=== PATIENT | male | born 1955 | race Caucasian/White ===

== ENCOUNTER → 2016-12-07 | Outpatient (CLI) | payer OTHER ==
--- NOTE | 2016-12-07 10:29 | REP ---
Chest x-ray: Two views. History: Chronic ischemic heart disease. Comparison chest x-ray: March 13, 2010. Findings: The lungs are symmetrically well inflated and clear. Pleural angles are sharp. The heart is not enlarged. There is an elongate left coronary artery stent noted in place. Pulmonary vasculature is not increased. No significant bony abnormality is seen. Impression: Coronary artery stent material noted overlying the heart. Otherwise no acute disease. Signed by Live Villar MD 12/07/2016 01:07 P
[2016-12-07 10:56] LABS: BASO % 0.9 % (0.0-1.0); EOS # 0.2 K/mm3 (0.0-0.50); EOS % 4.1 % (0.0-3.0); LYMPH # 1.2 K/mm3 (1.5-4.5); LYMPH % 23.1 % (24.0-44.0); MEAN CORPUSCULAR HEMOGLOBIN 33.2 pg (27.0-33.0); MEAN CORPUSCULAR HGB CONC 33.8 g/dl (32.0-36.5); MEAN CORPUSCULAR VOLUME 98.2 fl (80.0-96.0); MONO # 0.4 K/mm3 (0.0-0.8); MONO % 7.1 % (0.0-5.0); NEUTROPHILS # 3.2 K/mm3 (1.8-7.7); RED CELL DISTRIBUTION WIDTH 13.1 % (11.5-14.5); WHITE BLOOD COUNT 5.2 K/mm3 (4.0-10.0)
[2016-12-07 11:12] LABS: ALBUMIN 3.9 GM/DL (3.2-5.2); ALBUMIN/GLOBULIN RATIO 1.26 (1.00-1.93); ALKALINE PHOSPHATASE 60 U/L (45-117); ALT/SGPT 38 U/L (12-78); ANION GAP 5 MEQ/L (8-16); AST/SGOT 29 U/L (15-37); BILIRUBIN,TOTAL 0.3 MG/DL (0.2-1.0); BLOOD UREA NITROGEN 16 MG/DL (7-18); CALCIUM LEVEL 9.3 MG/DL (8.8-10.2); CARBON DIOXIDE LEVEL 30 MEQ/L (21-32); CHLORIDE LEVEL 108 MEQ/L (98-107); CHOLESTEROL LEVEL 178 MG/DL (<200); CREATININE FOR GFR 0.77 MG/DL (0.70-1.30); GLOMERULAR FILTRATION RATE > 60.0 (>49); GLUCOSE, FASTING 89 MG/DL (80-110); POTASSIUM SERUM 4.5 MEQ/L (3.5-5.1); SODIUM LEVEL 143 MEQ/L (136-145); TRIGLYCERIDES LEVEL 189 MG/DL (<150)
== END ==
LOC: M LAB 09:34
PROVIDERS: ATTEND Physician Assistant Medical
DX: I25.9 Chronic ischemic heart disease, unspecified (principal)

== ENCOUNTER → 2017-04-08 | Outpatient (CLI) | payer OTHER ==
[~2017-04-08] MED LIST: GASTROGRAFIN SOLUTION 30ML (Q9963) As Ordered ONE; ISOVUE-370 76% 100ML VIAL (Q9967) As Ordered ONE
--- NOTE | 2017-04-08 15:56 | REP ---
CT ABDOMEN AND PELVIS WITH IV CONTRAST: TECHNIQUE: Axial contrast enhanced images from the lung bases to the pubic symphysis using 100 mL Isovue 370 intravenous contrast material with multiplanar reformations. Visualized lung bases are clear. Liver, spleen, adrenals, pancreas, and kidneys are normal in appearance. There is no hydronephrosis. There are moderate atherosclerotic calcifications of the abdominal aorta without aneurysm. Bilateral external iliac bypass grafts are noted. There is no adenopathy. There is no free air or free fluid. No bowel wall thickening is seen. There is no evidence of appendicitis. No pelvic mass is seen. The urinary bladder is not well distended and not well evaluated. There is no anterior abdominal wall defect. There are degenerative changes at L5-S1 disc level. IMPRESSION: No mass or adenopathy seen in the abdomen or pelvis. No free air or free fluid. No acute findings. Signed by Bhupinder Whalen MD 04/08/2017 05:02 P
--- NOTE | 2017-04-08 16:22 | REP ---
MRI lumbar spine without contrast: History: Low back pain. Failed conservative measures. Technique: Sagittal and axial T1 and T2-weighted scans are acquired in the usual fashion with and without fat saturation. Sequences include spin echo, turbo spin-echo, and STIR imaging sequences. MRI findings: Lumbar vertebral body heights are preserved. Alignment is normal. Cortical and medullary bone signal intensity are preserved. There are mild reactive marrow changes on either side of the degenerated L5-S1 disc. Axial and sagittal images at L5-S1 demonstrate central disc bulging indenting the ventral margin of the thecal sac. There is mild osteoarthritic facet hypertrophy bilaterally at L5-S1. There is mild bilateral neural foraminal narrowing from facet hypertrophy and discogenic spurring. No central canal stenosis is noted. At L4-5, axial and sagittal images demonstrate a large left posterior disc protrusion. Disc protrusion measures 17 x 18 x 10 mm. There is significant compression of the thecal sac. Canal size is developmentally small and this is exaggerated by ligamentum flavum and facet hypertrophy which is present bilaterally. CSF signal is completely effaced on T2-weighted scans from the thecal sac at the 4-5 level. There is mild neural foraminal narrowing on the right. At L3-4, there is central disc bulging indenting the ventral margin of the thecal sac. Canal size is borderline. There is mild ligamentum flavum and facet hypertrophy. AP dimension of the thecal sac in the midline at this level is 11 mm. No neural foraminal narrowing is seen. At L2-3, there is mild diffuse disc bulging. Mild facet hypertrophy is noted. No neural foraminal narrowing is seen. At L1-2, there is mild diffuse disc bulging. Impression: Degenerative spondylosis changes most pronounced at L4-5 and L5-S1. The dominant abnormality is significant thecal sac compression from a large left-sided disc herniation at L4-5 superimposed on developmental and acquired central canal stenosis. Neural foraminal narrowing is noted at L4-5 and L5-S1 as described above. Signed by Live Villar MD 04/08/2017 04:43 P
== END ==
LOC: M RAD 12:14
PROVIDERS: ATTEND Physician Assistant Medical
DX: M54.5 Low back pain (principal); R10.9 Unspecified abdominal pain
CPT/HCPCS: 72148; 74177; Q9963; Q9967

== ENCOUNTER → 2020-08-20 | Outpatient (CLI) | payer OTHER ==
--- NOTE | 2020-08-20 12:31 | REP ---
INDICATION: ANOREXIA COMPARISON: 12/07/2016. TECHNIQUE: PA/Lateral FINDINGS: Lungs: Clear, no infiltrate. Heart: Normal in size. Mediastinum: Mediastinal silhouette unremarkable. Pleural angles: Unremarkable.. Bones and soft tissues: Unremarkable. IMPRESSION: No acute pulmonary disease. <Electronically signed by Bhupinder Whalen > 08/20/20 [id number]
[2020-08-20 17:27] LABS: BASO # 0.1 10^3/uL (0.0-0.2); BASO % 0.8 % (0.0-1.0); EOS # 0.2 10^3/uL (0.0-0.5); EOS % 2.2 % (0.0-3.0); HEMATOCRIT 43.1 % (42.0-52.0); LYMPH # 1.6 10^3/uL (1.5-5.0); LYMPH % 21.9 % (24.0-44.0); MEAN CORPUSCULAR HGB CONC 32.5 g/dl (32.0-36.5); MEAN CORPUSCULAR VOLUME 86.2 fl (80.0-96.0); MONO # 0.5 10^3/uL (0.0-0.8); MONO % 6.7 % (2.0-8.0); NEUTROPHILS % 68.3 % (36.0-66.0); PLATELET COUNT, AUTOMATED 378 10^3/uL (150-450); WHITE BLOOD COUNT 7.4 10^3/uL (4.0-10.0)
[2020-08-20 17:52] LABS: ALBUMIN 3.7 GM/DL (3.2-5.2); ALT/SGPT 23 U/L (12-78); BILIRUBIN,TOTAL 0.2 MG/DL (0.2-1.0); BLOOD UREA NITROGEN 18 MG/DL (7-18); CALCIUM LEVEL 9.7 MG/DL (8.8-10.2); CARBON DIOXIDE LEVEL 30 MEQ/L (21-32); CHLORIDE LEVEL 104 MEQ/L (98-107); CHOLESTEROL LEVEL 161 MG/DL (<200); CHOLESTEROL RISK RATIO 3.354 (<5); CREATININE FOR GFR 0.66 MG/DL (0.70-1.30); GLOMERULAR FILTRATION RATE > 60.0 (>49); GLUCOSE, FASTING 90 MG/DL (70-100); HDL CHOLESTEROL 48 MG/DL (>40); LDL CHOLESTEROL 91 MG/DL (<100); LIPASE 78 U/L (73-393); NON-HDL-C 113 MG/DL; POTASSIUM SERUM 4.8 MEQ/L (3.5-5.1); SODIUM LEVEL 138 MEQ/L (136-145); THYROID STIMULATING HORMONE 0.913 uIU/ML (0.358-3.740); TRIGLYCERIDES LEVEL 110 MG/DL (<150)
== END ==
LOC: M RAD 11:33
PROVIDERS: ATTEND Pediatrics
DX: I25.119 Atherosclerotic heart disease of native coronary artery with unspecified angina pectoris (principal); R63.0 Anorexia

== ENCOUNTER → 2020-10-14 | Outpatient (REF) | payer OTHER ==
[~2020-10-14] MED LIST changes: +ASPI-255 PO; +ATOR80TA59 PO; +CLOP75TA2 PO; -GASTROGRAFIN SOLUTION 30ML (Q9963) As Ordered ONE; -ISOVUE-370 76% 100ML VIAL (Q9967) As Ordered ONE; +LISI2.5T2 PO
[2020-10-14 13:34] LABS: BASO # 0.1 10^3/uL (0.0-0.2); BASO % 1.1 % (0.0-1.0); EOS # 0.2 10^3/uL (0.0-0.5); EOS % 1.9 % (0.0-3.0); HEMATOCRIT 44.3 % (42.0-52.0); HEMOGLOBIN 14.5 g/dl (13.5-17.5); LYMPH # 1.6 10^3/uL (1.5-5.0); LYMPH % 19.9 % (24.0-44.0); MEAN CORPUSCULAR HEMOGLOBIN 28.8 pg (27.0-33.0); MEAN CORPUSCULAR HGB CONC 32.7 g/dl (32.0-36.5); MEAN CORPUSCULAR VOLUME 88.1 fl (80.0-96.0); MONO # 0.6 10^3/uL (0.0-0.8); MONO % 7.8 % (2.0-8.0); NEUTROPHILS # 5.6 10^3/uL (1.5-8.5); NEUTROPHILS % 69.1 % (36.0-66.0); PLATELET COUNT, AUTOMATED 337 10^3/uL (150-450); RED BLOOD COUNT 5.03 10^6/uL (4.30-6.10); WHITE BLOOD COUNT 8.1 10^3/uL (4.0-10.0)
[2020-10-14 14:04] LABS: ALBUMIN 3.7 GM/DL (3.2-5.2); ALT/SGPT 22 U/L (12-78); BILIRUBIN,TOTAL 0.2 MG/DL (0.2-1.0); BLOOD UREA NITROGEN 18 MG/DL (7-18); C REACTIVE PROTEIN QUANTITATIV 0.58 MG/DL (0.00-0.30); CALCIUM LEVEL 9.7 MG/DL (8.8-10.2); CARBON DIOXIDE LEVEL 28 MEQ/L (21-32); CHLORIDE LEVEL 106 MEQ/L (98-107); CREATININE FOR GFR 0.76 MG/DL (0.70-1.30); GLOMERULAR FILTRATION RATE > 60.0 (>49); GLUCOSE, FASTING 91 MG/DL (70-100); POTASSIUM SERUM 4.8 MEQ/L (3.5-5.1); SODIUM LEVEL 138 MEQ/L (136-145); TOTAL PROTEIN 7.5 GM/DL (6.4-8.2)
[2020-10-14 14:08] LABS: ERYTHROCYTE SEDIMENTATION RATE 24 mm/hr (0-20)
== END ==
LOC: M SFHCPLAZ 10:11
PROVIDERS: ATTEND Internal Medicine Infectious Disease
DX: A69.23 Arthritis due to Lyme disease (principal)
CPT/HCPCS: 36415; 80053; 85025; 85652; 86140; G0463

== ENCOUNTER 2020-10-20 12:01 | Outpatient (CLI) | payer OTHER ==
[~2020-10-20] VITALS: Ht 182.9 cm; Wt 58.0 kg
[~2020-10-20 12:01] MED LIST changes: -LIDOCAINE 1% MDV 20ML VIAL As Ordered ONE
[2020-10-20] MEDS ORDERED: SODIUM CHLORIDE 0.9% INJ 10 ML SYR IV PRN (14:55)
[2020-10-20 15:00] VITALS: BP 137/75
[2020-10-20] MEDS ORDERED: cefTRIAXone SOD 2 GM in D5W MINI-BAG PLUS 50 ML IV ONE (15:30)
[2020-10-20] MEDS ORDERED: SODIUM CHLORIDE 0.9% INJ 10 ML SYR IV SCH (18:00)
== END 2020-10-20 15:15 | disposition home or self-care (01) ==
LOC: M INFU 12:01
PROVIDERS: ATTEND Internal Medicine Infectious Disease
DX: A69.23 Arthritis due to Lyme disease (principal)
CPT/HCPCS: 76937; 96365; C1751; J0696; J1642; J1644

== ENCOUNTER → 2020-10-20 | Outpatient (CLI) | payer OTHER ==
[~2020-10-20] MED LIST changes: +LIDOCAINE 1% MDV 20ML VIAL As Ordered ONE
[2020-10-20 12:34] VITALS: BP 138/63
--- NOTE | 2020-10-20 16:25 | REP ---
PROCEDURE NAME: PICC LINE INSERTION W/SITERITE CLINICAL INFORMATION: ANTIBIOTIC TREATMENT. COMPARISON: None. PROCEDURE DESCRIPTION: The procedure was performed by CASSIUS Law, under the direct supervision of Dr. Villar. The risks and benefits of the procedure were explained to the patient and an informed consent was obtained both verbally and written. Directly prior to the start of the procedure a formal time-out was completed in the procedure room. The left lateral brachial vein was localized using ultrasound guidance. The skin was prepped and draped in sterile fashion. One mL of 1% lidocaine 10 mg/mL was used as a local anesthetic. Using ultrasound guidance the left lateral brachial vein was cannulated, and a 0.018 guidewire was inserted and advanced to the level of SVC using fluoroscopic guidance. The needle was removed and a 4.5 Wallisian dilator and peel-away sheath was inserted over the guidewire. A 4.5 Wallisian single lumen catheter was cut to a length of 35 cm. The dilator was removed and the catheter was inserted over the guidewire with the tip ending at the level of the SVC. The peel-away sheath was removed and the catheter was flushed with heparinized saline as per hospital protocol. The catheter was affixed to the skin and a sterile dressing was applied. The patient tolerated the procedure well and there were no immediate complications. CONCLUSION: PICC line insertion into the left lateral brachial vein. 0.3 minutes of fluoroscopy time was utilized for this procedure. Some fluoroscopic images are performed with last image hold technology. These images require no additional radiation. <Electronically signed by Quyen Turk > 10/20/20 1608 <Electronically signed by Stone Villar > 10/20/20 1628
== END ==
LOC: M IRPRO 12:05
PROVIDERS: ATTEND Internal Medicine Infectious Disease
DX: A69.23 Arthritis due to Lyme disease (principal)

== ENCOUNTER → 2020-10-29 | Outpatient (REF) | payer OTHER ==
[2020-10-29 12:36] LABS: BASO # 0.1 10^3/uL (0.0-0.2); BASO % 1.1 % (0.0-1.0); EOS # 0.3 10^3/uL (0.0-0.5); EOS % 3.4 % (0.0-3.0); HEMOGLOBIN 13.7 g/dl (13.5-17.5); LYMPH # 1.8 10^3/uL (1.5-5.0); LYMPH % 24.5 % (24.0-44.0); MEAN CORPUSCULAR HEMOGLOBIN 28.8 pg (27.0-33.0); MEAN CORPUSCULAR HGB CONC 32.6 g/dl (32.0-36.5); MEAN CORPUSCULAR VOLUME 88.4 fl (80.0-96.0); MONO # 0.5 10^3/uL (0.0-0.8); MONO % 7.3 % (2.0-8.0); NEUTROPHILS # 4.7 10^3/uL (1.5-8.5); NEUTROPHILS % 63.4 % (36.0-66.0); PLATELET COUNT, AUTOMATED 326 10^3/uL (150-450); RED BLOOD COUNT 4.75 10^6/uL (4.30-6.10); WHITE BLOOD COUNT 7.4 10^3/uL (4.0-10.0)
[2020-10-29 12:53] LABS: ALBUMIN 3.5 GM/DL (3.2-5.2); ALT/SGPT 21 U/L (12-78); BILIRUBIN,TOTAL 0.1 MG/DL (0.2-1.0); BLOOD UREA NITROGEN 15 MG/DL (7-18); C REACTIVE PROTEIN QUANTITATIV 0.53 MG/DL (0.00-0.30); CALCIUM LEVEL 8.6 MG/DL (8.8-10.2); CARBON DIOXIDE LEVEL 27 MEQ/L (21-32); CHLORIDE LEVEL 105 MEQ/L (98-107); CREATININE FOR GFR 0.67 MG/DL (0.70-1.30); GLOMERULAR FILTRATION RATE > 60.0 (>49); GLUCOSE, FASTING 83 MG/DL (70-100); POTASSIUM SERUM 4.6 MEQ/L (3.5-5.1); SODIUM LEVEL 137 MEQ/L (136-145); TOTAL PROTEIN 7.3 GM/DL (6.4-8.2)
[2020-10-29 13:10] LABS: ERYTHROCYTE SEDIMENTATION RATE 19 mm/hr (0-20)
== END ==
LOC: M LAB REF 12:10
PROVIDERS: ATTEND Internal Medicine Infectious Disease
DX: A69.23 Arthritis due to Lyme disease (principal)

== ENCOUNTER → 2020-11-05 | Outpatient (REF) | payer OTHER ==
[2020-11-05 13:50] LABS: BASO # 0.1 10^3/uL (0.0-0.2); BASO % 1.2 % (0.0-1.0); EOS # 0.5 10^3/uL (0.0-0.5); EOS % 5.9 % (0.0-3.0); HEMATOCRIT 40.5 % (42.0-52.0); HEMOGLOBIN 13.4 g/dl (13.5-17.5); LYMPH # 1.8 10^3/uL (1.5-5.0); LYMPH % 23.5 % (24.0-44.0); MEAN CORPUSCULAR HEMOGLOBIN 29.3 pg (27.0-33.0); MEAN CORPUSCULAR HGB CONC 33.1 g/dl (32.0-36.5); MEAN CORPUSCULAR VOLUME 88.4 fl (80.0-96.0); MONO # 0.5 10^3/uL (0.0-0.8); MONO % 6.1 % (2.0-8.0); NEUTROPHILS # 4.9 10^3/uL (1.5-8.5); PLATELET COUNT, AUTOMATED 315 10^3/uL (150-450); RED BLOOD COUNT 4.58 10^6/uL (4.30-6.10); WHITE BLOOD COUNT 7.8 10^3/uL (4.0-10.0)
[2020-11-05 14:09] LABS: ERYTHROCYTE SEDIMENTATION RATE 18 mm/hr (0-20)
[2020-11-05 14:30] LABS: ALBUMIN 3.2 GM/DL (3.2-5.2); ALT/SGPT 19 U/L (12-78); BILIRUBIN,TOTAL 0.2 MG/DL (0.2-1.0); BLOOD UREA NITROGEN 15 MG/DL (7-18); CALCIUM LEVEL 8.8 MG/DL (8.8-10.2); CARBON DIOXIDE LEVEL 28 MEQ/L (21-32); CHLORIDE LEVEL 107 MEQ/L (98-107); CREATININE FOR GFR 0.63 MG/DL (0.70-1.30); GLOMERULAR FILTRATION RATE > 60.0 (>49); GLUCOSE, FASTING 136 MG/DL (70-100); POTASSIUM SERUM 4.2 MEQ/L (3.5-5.1); SODIUM LEVEL 139 MEQ/L (136-145); TOTAL PROTEIN 6.7 GM/DL (6.4-8.2)
== END ==
LOC: M LAB REF 13:06
PROVIDERS: ATTEND Internal Medicine Infectious Disease
DX: A69.23 Arthritis due to Lyme disease (principal)

== ENCOUNTER → 2020-11-12 | Outpatient (REF) | payer OTHER ==
[2020-11-12 17:44] LABS: BASO # 0.1 10^3/uL (0.0-0.2); BASO % 1.3 % (0.0-1.0); EOS # 0.4 10^3/uL (0.0-0.5); EOS % 5.3 % (0.0-3.0); HEMATOCRIT 43.3 % (42.0-52.0); HEMOGLOBIN 14.3 g/dl (13.5-17.5); LYMPH # 1.6 10^3/uL (1.5-5.0); LYMPH % 20.4 % (24.0-44.0); MEAN CORPUSCULAR HEMOGLOBIN 29.2 pg (27.0-33.0); MEAN CORPUSCULAR VOLUME 88.4 fl (80.0-96.0); MONO # 0.5 10^3/uL (0.0-0.8); MONO % 6.3 % (2.0-8.0); NEUTROPHILS % 66.4 % (36.0-66.0); PLATELET COUNT, AUTOMATED 296 10^3/uL (150-450); WHITE BLOOD COUNT 7.6 10^3/uL (4.0-10.0)
[2020-11-12 18:11] LABS: ALBUMIN 3.5 GM/DL (3.2-5.2); ALT/SGPT 24 U/L (12-78); BILIRUBIN,TOTAL 0.2 MG/DL (0.2-1.0); BLOOD UREA NITROGEN 13 MG/DL (7-18); C REACTIVE PROTEIN QUANTITATIV 0.53 MG/DL (0.00-0.30); CALCIUM LEVEL 9.6 MG/DL (8.8-10.2); CARBON DIOXIDE LEVEL 28 MEQ/L (21-32); CHLORIDE LEVEL 105 MEQ/L (98-107); CREATININE FOR GFR 0.79 MG/DL (0.70-1.30); GLOMERULAR FILTRATION RATE > 60.0 (>49); GLUCOSE, FASTING 112 MG/DL (70-100); POTASSIUM SERUM 4.4 MEQ/L (3.5-5.1); SODIUM LEVEL 139 MEQ/L (136-145); TOTAL PROTEIN 7.4 GM/DL (6.4-8.2)
[2020-11-12 18:58] LABS: ERYTHROCYTE SEDIMENTATION RATE 26 mm/hr (0-20)
== END ==
LOC: M LAB REF 15:54
PROVIDERS: ATTEND Internal Medicine Infectious Disease
DX: A69.23 Arthritis due to Lyme disease (principal)

== ENCOUNTER → 2020-11-19 | Outpatient (REF) | payer OTHER ==
[2020-11-19 12:21] LABS: BASO # 0.1 10^3/uL (0.0-0.2); BASO % 1.3 % (0.0-1.0); EOS # 0.4 10^3/uL (0.0-0.5); EOS % 5.3 % (0.0-3.0); HEMOGLOBIN 13.8 g/dl (13.5-17.5); LYMPH # 1.9 10^3/uL (1.5-5.0); LYMPH % 23.3 % (24.0-44.0); MEAN CORPUSCULAR HEMOGLOBIN 29.1 pg (27.0-33.0); MEAN CORPUSCULAR HGB CONC 32.9 g/dl (32.0-36.5); MEAN CORPUSCULAR VOLUME 88.6 fl (80.0-96.0); MONO # 0.6 10^3/uL (0.0-0.8); MONO % 7.9 % (2.0-8.0); NEUTROPHILS # 4.9 10^3/uL (1.5-8.5); NEUTROPHILS % 61.9 % (36.0-66.0); PLATELET COUNT, AUTOMATED 297 10^3/uL (150-450); RED BLOOD COUNT 4.74 10^6/uL (4.30-6.10)
[2020-11-19 12:46] LABS: ALBUMIN 3.4 GM/DL (3.2-5.2); ALT/SGPT 27 U/L (12-78); BILIRUBIN,TOTAL 0.2 MG/DL (0.2-1.0); BLOOD UREA NITROGEN 12 MG/DL (7-18); CARBON DIOXIDE LEVEL 27 MEQ/L (21-32); CHLORIDE LEVEL 109 MEQ/L (98-107); GLOMERULAR FILTRATION RATE > 60.0 (>49); GLUCOSE, FASTING 84 MG/DL (70-100); POTASSIUM SERUM 4.5 MEQ/L (3.5-5.1); SODIUM LEVEL 141 MEQ/L (136-145); TOTAL PROTEIN 6.8 GM/DL (6.4-8.2)
[2020-11-19 13:26] LABS: ERYTHROCYTE SEDIMENTATION RATE 17 mm/hr (0-20)
== END ==
LOC: M LAB REF 11:52
PROVIDERS: ATTEND Internal Medicine Infectious Disease
DX: A69.23 Arthritis due to Lyme disease (principal)

== ENCOUNTER → 2020-12-18 | Outpatient (CLI) | payer OTHER ==
[~2020-12-18] MED LIST changes: -LISI2.5T2 PO; +LISI2.5T9 PO
--- NOTE | 2020-12-18 09:41 | REP ---
INDICATION: PAIN IN RIGHT KNEE COMPARISON: None. TECHNIQUE: AP and lateral views of the right and left knee FINDINGS: Right knee demonstrates age-related changes including increased sclerosis along the tibial plateau and posterior patellar margin with minimal joint space narrowing. Vascular calcifications are identified. No evidence for acute fracture or dislocation. Left knee demonstrates advanced tricompartmental osteoarthritic degenerative changes including periarticular sclerosis, joint space narrowing, osteophytosis, chondrocalcinosis and calcified loose body measuring roughly 18 mm maximal diameter. Vascular calcifications are identified. Ovoid calcification in the suprapatellar bursa noted. No acute fracture or dislocation. IMPRESSION: Asymmetric advanced arthritic changes to the left knee. <Electronically signed by Marvin Ortiz > 12/18/20 0937
== END ==
LOC: M PLAIMG 09:11
PROVIDERS: ATTEND Internal Medicine Infectious Disease
DX: M17.12 Unilateral primary osteoarthritis, left knee (principal); M25.561 Pain in right knee; M25.562 Pain in left knee
CPT/HCPCS: 73560; G0463

== ENCOUNTER → 2021-01-14 | Outpatient (CLI) | payer OTHER | LOC: M LABSMTC 11:49 | PROVIDERS: ATTEND Surgery Vascular Surgery | DX: Z01.812 Encounter for preprocedural laboratory examination (principal); Z20.822 Contact with and (suspected) exposure to COVID-19 ==

== ENCOUNTER → 2022-03-11 | Outpatient (CLI) | payer OTHER ==
[~2022-03-11] MED LIST changes: +ISOVUE-370 76% 100ML VIAL As Ordered ONE
== END ==
LOC: M RAD 11:28
PROVIDERS: ATTEND Physician Assistant
DX: I70.213 Atherosclerosis of native arteries of extremities with intermittent claudication, bilateral legs (principal); Z95.820 Peripheral vascular angioplasty status with implants and grafts
CPT/HCPCS: 75635; Q9967

== ENCOUNTER → 2022-03-23 | Outpatient (CLI) | payer OTHER ==
[~2022-03-23] MED LIST changes: -ISOVUE-370 76% 100ML VIAL As Ordered ONE
== END ==
LOC: M RAD 09:56
PROVIDERS: ATTEND Physician Assistant
DX: I65.23 Occlusion and stenosis of bilateral carotid arteries (principal)

== ENCOUNTER → 2022-09-21 | Outpatient (CLI) | payer OTHER | LOC: M RAD 10:02 | PROVIDERS: ATTEND Physician Assistant | DX: I70.213 Atherosclerosis of native arteries of extremities with intermittent claudication, bilateral legs (principal) ==

== ENCOUNTER → 2022-11-26 | Outpatient (CLI) | payer OTHER ==
[2022-11-26 10:30] LABS: BLOOD UREA NITROGEN 9 MG/DL (9-23); CREATININE FOR GFR 0.84 MG/DL (0.70-1.30); GLOMERULAR FILTRATION RATE > 60.0 (>49)
== END ==
LOC: M LAB 09:26
PROVIDERS: ATTEND Physician Assistant
DX: I70.213 Atherosclerosis of native arteries of extremities with intermittent claudication, bilateral legs (principal)

== ENCOUNTER → 2022-12-01 | Outpatient (CLI) | payer OTHER ==
[~2022-12-01] MED LIST changes: +ISOVUE-370 76% 100ML VIAL As Ordered ONE
== END ==
LOC: M RAD 10:35
PROVIDERS: ATTEND Physician Assistant
DX: I70.213 Atherosclerosis of native arteries of extremities with intermittent claudication, bilateral legs (principal); Z95.828 Presence of other vascular implants and grafts
CPT/HCPCS: 75635; Q9967

== ENCOUNTER → 2023-04-14 | Outpatient (CLI) | payer OTHER | LOC: M RAD 13:54 | PROVIDERS: ATTEND Physician Assistant | DX: T82.898A Other specified complication of vascular prosthetic devices, implants and grafts, initial encounter (principal); Z95.1 Presence of aortocoronary bypass graft | CPT/HCPCS: 75635; Q9967 ==

== ENCOUNTER → 2024-03-13 | Outpatient (CLI) | payer OTHER | LOC: M RAD 12:48 | PROVIDERS: ATTEND Surgery Vascular Surgery | DX: I70.203 Unspecified atherosclerosis of native arteries of extremities, bilateral legs (principal); I70.0 Atherosclerosis of aorta; Z95.828 Presence of other vascular implants and grafts | CPT/HCPCS: 75635; Q9967 ==

== ENCOUNTER → 2024-07-24 | Outpatient (CLI) | payer OTHER ==
[~2024-07-24] MED LIST changes: -ISOVUE-370 76% 100ML VIAL As Ordered ONE
[2024-07-24 08:54] LABS: BLOOD UREA NITROGEN 14 MG/DL (9-23); CREATININE FOR GFR 0.76 MG/DL (0.70-1.30); GLOMERULAR FILTRATION RATE > 60.0 (>42)
== END ==
LOC: M LAB 07:35
PROVIDERS: ATTEND Surgery Vascular Surgery
DX: I73.9 Peripheral vascular disease, unspecified (principal)

== ENCOUNTER → 2024-08-01 | Outpatient (CLI) | payer OTHER ==
[~2024-08-01] MED LIST changes: +ISOVUE-370 76% 100ML VIAL As Ordered ONE
== END ==
LOC: M RAD 09:35
PROVIDERS: ATTEND Surgery Vascular Surgery
DX: I73.9 Peripheral vascular disease, unspecified (principal); N40.0 Benign prostatic hyperplasia without lower urinary tract symptoms; K57.30 Diverticulosis of large intestine without perforation or abscess without bleeding; I70.92 Chronic total occlusion of artery of the extremities
CPT/HCPCS: 75635; Q9967